=== PATIENT | female | born 1965 | race Caucasian/White ===

== ENCOUNTER 2016-10-18 05:37 | Emergency (ER) | payer BC ==
[2016-10-18 06:22] VITALS: BP 177/93
[2016-10-18] MEDS ORDERED: Albuterol/Ipratropium 3.0-0.5 MG/3 ML Neb Soln NEB ONE (06:39)
--- NOTE | 2016-10-18 06:45 | EDM.PDOC ---
<Carmina Jara - Last Filed: 10/18/16 06:40> ED HISTORY OF PRESENT ILLNESS - General Chief Complaint: Respiratory Problem Stated Complaint: COUGH/CAN'T HEAR Time Seen by Provider: 10/18/16 06:40 Source: Reports: Patient, Family History Limitations: Reports: No limitations - History of Present Illness INITIAL COMMENTS - FREE TEXT/NARRATIVE: pt arrived with a marked cough. She was seen at the clinic lst Wednesday with her uvula swollen and the cough. She was placed on amoxicillin. The throat is better but she is coughing markedly. Timing/Duration: Reports: Day(s): Severity: moderate Location, General: Reports: chest, other ( She is coughing markedly. ) Associated Symptoms: Reports: cough, shortness of breath - Related Data Allergies/ADRs: Allergies Allergy/AdvReac Type Severity Reaction Status Date / Time Sulfa (Sulfonamide Allergy Rash Verified 10/18/16 05:52 Antibiotics) Home Meds: Home Meds Albuterol [Proventil HFA] 2 puff INH Q4H PRN 09/26/15 [History] Cetirizine [ZyrTEC] 10 mg PO DAILY PRN 09/26/15 [History] Fluticasone Propionate [Flonase] 2 sprays NASBOTH DAILY PRN 09/26/15 [History] Ibuprofen [Advil] 200 mg PO Q4H PRN 09/26/15 [History] Losartan/Hydrochlorothiazide [Hyzaar 100-25] 1 tab PO DAILY 09/26/15 [History] Montelukast [Singulair] 10 mg PO DAILY 09/26/15 [History] Multivitamin [Multivitamins] 1 cap PO DAILY 09/26/15 [History] guaiFENesin [Mucinex] 600 mg PO ASDIRECTED PRN 09/26/15 [History] Amoxicillin/Clavulanate K [Take Home: Amox/Clavulanate 875-12, 2 Tab Pac] 1 tab PO BID 10/18/16 [History] Beclomethasone Dipropionate [Qvar] 1 puff INH BID PRN 10/18/16 [History] Nystatin [Nystatin] 5 ml PO QID 10/18/16 [History] Umeclidinium [place] [Incruse Ellipta] 1 puff INH DAILY 10/18/16 [History] Past Medical History HEENT History: Reports: Impaired vision Cardiovascular History: Reports: Hypertension Respiratory History: Reports: Asthma Gastrointestinal History: Reports: Chronic constipation Genitourinary History: Reports: None 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: Endocrine/Metabolic History: Reports: Obesity/BMI 30+ - Infectious Disease History Infectious Disease History: Reports: Chicken pox - Past Surgical History Female Surgical History: Reports: Tubal ligation Social & Family History - Tobacco Use Smoking Status *Q: Never Smoker - Caffeine Use Caffeine Use: Reports: Coffee - Recreational Drug Use Recreational Drug Use: No ED ROS GENERAL - Review of Systems Review Of Systems: See Below Constitutional: Reports: weakness, other (marked coughing) HEENT: Reports: Other ( Pt still feels like the uvula is swollen) Respiratory: Reports: Shortness of Breath, Cough Cardiovascular: Reports: No symptoms Endocrine: Reports: no symptoms GI/Abdominal: Reports: No symptoms : Reports: no symptoms Musculoskeletal: Reports: no symptoms Skin: Reports: no symptoms ED EXAM, GENERAL - Physical Exam Exam: See Below Free Text/Narrative:: Pt hs marked wheezing and a very harsh cough. Exam Limited By: No limitations General Appearance: alert, mild distress Ears: other (pt has fluid behind the rt drum. left drum has good lite reflex. ) Nose: normal inspection Throat/Mouth: Other (hr uvula is still slightly swollen) Head: atraumatic Neck: normal inspection Respiratory/Chest: no respiratory distress Cardiovascular: regular rate, rhythm GI/Abdominal: soft, non tender (Female) Exam: Deferred Rectal (Female) Exam: Deferred Back Exam: normal inspection Extremities: normal inspection Neurological: alert, oriented, normal cognition Course - Vital Signs Last Recorded V/S: Last Vital Signs Temp 96.4 F 10/18/16 06:09 Pulse 91 10/18/16 06:09 Resp 18 10/18/16 06:09 BP 177/93 H 10/18/16 06:09 Pulse Ox 92 L 10/18/16 06:09 - Orders/Labs/Meds Orders: Active Orders 24 hr Category Date Time Status RT Aerosol Therapy [RC] ASDIRECTED Care 10/18/16 06:40 Active Chest 2V [CR] Stat Exams 10/18/16 06:38 Taken Labs: Laboratory Tests 10/18/16 10/18/16 Range/Units 06:46 06:46 WBC 6.2 (4.5-11.0) K/uL RBC 4.45 (3.30-5.50) M/uL Hgb 13.9 (12.0-15.0) g/dL Hct 40.8 (36.0-48.0) % MCV 92 (80-98) fL MCH 31 (27-31) pg MCHC 34 (32-36) % Plt Count 230 (150-400) K/uL Neut % (Auto) 66 (36-66) % Lymph % (Auto) 15 L (24-44) % [place] % (Auto) 15 H (2-6) % Eos % (Auto) 3 (2-4) % Baso % (Auto) 1 (0-1) % Sodium 144 (140-148) mmol/L Potassium 3.5 L (3.6-5.2) mmol/L Chloride 105 (100-108) mmol/L Carbon Dioxide 30 (21-32) mmol/L Anion Gap 12.5 (5.0-14.0) mmol/L BUN 9 (7-18) mg/dL Creatinine 0.8 (0.6-1.0) mg/dL Est Cr Clr Drug Dosing 85.97 mL/min Estimated GFR (MDRD) > 60 (>60) Glucose 117 H (74-106) mg/dL Calcium 9.2 (8.5-10.1) mg/dL Meds: Medications Discontinued Medications Generic Name Dose Route Start Last Admin Trade Name Freq PRN Reason Stop Dose Admin Albuterol/Ipratropium 3 ml 10/18/16 06:39 10/18/16 06:45 Duoneb 3.0-0.5 Mg/3 Ml NEB 10/18/16 06:40 3 ml ONETIME ONE Administration Methylprednisolone Sodium Succinate 125 mg 10/18/16 07:14 10/18/16 07:21 Solu-Medrol IVPUSH 10/18/16 07:15 125 mg ONETIME ONE Administration Departure - Departure Disposition: Home, Self-Care 01 Clinical Impression: Exacerbation of asthma Instructions: Asthma, Adult, [id number] Referrals: Pravin Luciano MD [Primary Care Provider] - Forms: ED Department Discharge Care Plan Goals: Take 60 mg(6 pills) of prednisone with supper tonight, then 6 pills each morning with your first food for 4 more days. Recheck after prednisone if not improving sufficiently or return anytime if worsening or concerns. <Donta Rajput - Last Filed: 10/18/16 07:56> Course - Re-Assessments/Exams Free Text/Narrative Re-Assessment/Exam: 10/18/16 07:21 Chest xray negative. Patient had partial response to nebulizer. Will be given 125 mg of Solumedrol IV then 60 mg of prednisone daily for 5 days. She can return anytime if worsening Departure - Departure Time of Disposition: 07:38 Condition: good
[2016-10-18] MEDS ORDERED: methylPREDNISolone Sodium Succinate 125 MG/2 ML SDV IVPUSH ONE (07:14)
--- NOTE | 2016-10-19 10:26 | CR ---
Chest 2V HISTORY: cough wheezing COMPARISON: 09/26/2015. FINDINGS: Increased density left infrahilar region slight increased interstitial density in the mateo hilar regions when compared to prior study could represent a edema or inflammatory process. Cardiac size is stable no effusions. Impression: Increased density left infrahilar region as well as perihilar regions likely represent a mild inflam matory process.
== END 2016-10-18 07:38 | disposition home or self-care (01) ==
LOC: JP.ED 05:37
DX: J45.901 Unspecified asthma with (acute) exacerbation (principal); I10 Essential (primary) hypertension; E66.9 Obesity, unspecified; Z79.899 Other long term (current) drug therapy; Z88.2 Allergy status to sulfonamides; Z98.51 Tubal ligation status
CPT/HCPCS: 36415; 71020; 80048; 85025; 94640; 96374; 99284; J2930; J7620

== ENCOUNTER 2017-08-16 15:57 | Emergency (ER) | payer BC ==
[2017-08-16] MEDS ORDERED: Potassium Chloride 20 MEQ Tab.ER PO ONE (16:57)
[2017-08-16] MEDS ORDERED: Potassium Chloride 20 MEQ in Premix Bag 1 BAG IV ONE (17:01)
[2017-08-16] MEDS ORDERED: Sodium Chloride 0.9% 10 ML Syringe FLUSH PRN (17:04)
--- NOTE | 2017-08-16 17:07 | EDM.PDOC ---
ED HPI GENERAL MEDICAL PROBLEM - General Chief Complaint: Cardiovascular Problem Stated Complaint: HEART Time Seen by Provider: 08/16/17 16:25 Source of Information: Reports: Patient, Family History Limitations: Reports: No Limitations - History of Present Illness INITIAL COMMENTS - FREE TEXT/NARRATIVE: pT ARRIVED WITH A HISTORY OF HEART PALPITATIONS THAT STARTED SUDDENLY LAST NITE AND HAS PERSISTED THROUGH OUT THE DAY sHE HAS ALSO BEEN TIRED. sHE HAS NOT HAD CHEST PAIN. sHE IS ON HYDROCHLORTHIAZIDE AND NO K REPLACEMENT. Onset: Other ( STARTED YESTERDAY. ) Duration: Hour(s):, Other ( hER HEART IS NOT IRREGULAR IT WAS LAST NITE. ) Location: Reports: Chest Associated Symptoms: Reports: Other ( FATIQUE) - Related Data Allergies Allergy/AdvReac Type Severity Reaction Status Date / Time Sulfa (Sulfonamide Allergy Rash Verified 10/18/16 05:52 Antibiotics) Home Meds: Home Meds Albuterol [Proventil HFA] 2 puff INH Q4H PRN 09/26/15 [History] Cetirizine [ZyrTEC] 10 mg PO DAILY PRN 09/26/15 [History] Fluticasone Propionate [Flonase] 2 sprays NASBOTH DAILY PRN 09/26/15 [History] Ibuprofen [Advil] 200 mg PO Q4H PRN 09/26/15 [History] Losartan/Hydrochlorothiazide [Hyzaar 100-25] 1 tab PO DAILY 09/26/15 [History] Montelukast [Singulair] 10 mg PO DAILY 09/26/15 [History] Multivitamin [Multivitamins] 1 cap PO DAILY 09/26/15 [History] guaiFENesin [Mucinex] 600 mg PO ASDIRECTED PRN 09/26/15 [History] Past Medical History HEENT History: Reports: Impaired Vision Cardiovascular History: Reports: Hypertension Respiratory History: Reports: Asthma Gastrointestinal History: Reports: Chronic Constipation Genitourinary History: Reports: 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: Endocrine/Metabolic History: Reports: Obesity/BMI 30+ - Infectious Disease History Infectious Disease History: Reports: Chicken Pox - Past Surgical History Female Surgical History: Reports: Tubal Ligation Social & Family History - Tobacco Use Smoking Status *Q: Never Smoker - Caffeine Use Caffeine Use: Reports: Coffee - Recreational Drug Use Recreational Drug Use: No ED ROS GENERAL - Review of Systems Review Of Systems: See Below Constitutional: Reports: No Symptoms HEENT: Reports: No Symptoms Respiratory: Reports: No Symptoms Cardiovascular: Reports: Palpitations, Other (PT FELT LIKE HER HEART WAS VERY IRREGULAR. ) Endocrine: Reports: No Symptoms GI/Abdominal: Reports: No Symptoms : Reports: No Symptoms Musculoskeletal: Reports: No Symptoms Skin: Reports: No Symptoms ED EXAM, GENERAL - Physical Exam Exam: See Below Free Text/Narrative:: pT HAS BEEN VERY FATIQUED AND HER HEART HAS BEEN IRREGULAR SINCE LAST NITE. Exam Limited By: No Limitations General Appearance: Alert, Anxious, Mild Distress, Other (PUPILS ARE EQUAL AND REACTIVE. ) Ears: Normal TMs Nose: Normal Inspection Throat/Mouth: Normal Inspection Head: Atraumatic Neck: Normal Inspection Respiratory/Chest: No Respiratory Distress Cardiovascular: Regular Rate, Rhythm, Other ( THERE IS A VERY RARE ECTOPIC. ) GI/Abdominal: Soft, Non-Tender (Female) Exam: Deferred Rectal (Female) Exam: Deferred Back Exam: Normal Inspection Extremities: Normal Inspection Neurological: Alert, Oriented, Normal Cognition Course - Vital Signs Last Recorded V/S: Last Vital Signs Temp 37.5 C 08/16/17 16:20 Pulse 84 08/16/17 19:23 Resp 15 08/16/17 18:23 BP 122/71 08/16/17 19:23 Pulse Ox 98 08/16/17 17:41 - Orders/Labs/Meds Orders: Active Orders 24 hr Category Date Time Status EKG Documentation Completion [RC] ASDIRECTED Care 08/16/17 16:21 Active Saline Lock Insert [OM.PC] Routine Oth 08/16/17 17:04 Ordered EKG 12 Lead [EK] Routine Ther 08/16/17 16:21 Ordered Labs: Laboratory Tests 08/16/17 08/16/17 08/16/17 Range/Units 16:10 16:10 16:10 WBC 9.7 (4.5-11.0) K/uL RBC 4.67 (3.30-5.50) M/uL Hgb 14.6 (12.0-15.0) g/dL Hct 41.7 (36.0-48.0) % MCV 89 (80-98) fL MCH 31 (27-31) pg MCHC 35 (32-36) % Plt Count 249 (150-400) K/uL Neut % (Auto) 72 H (36-66) % Lymph % (Auto) 17 L (24-44) % [place] % (Auto) 10 H (2-6) % Eos % (Auto) 1 L (2-4) % Baso % (Auto) 0 (0-1) % Sodium 142 (140-148) mmol/L Potassium 2.7 L* (3.6-5.2) mmol/L Chloride 101 (100-108) mmol/L Carbon Dioxide 31 (21-32) mmol/L Anion Gap 12.7 (5.0-14.0) mmol/L BUN 10 (7-18) mg/dL Creatinine 0.8 (0.6-1.0) mg/dL Est Cr Clr Drug Dosing 85.97 mL/min Estimated GFR (MDRD) > 60 (>60) Glucose 113 H (74-106) mg/dL Calcium 9.8 (8.5-10.1) mg/dL Total Bilirubin 0.6 D (0.2-1.0) mg/dL AST 22 (15-37) U/L ALT 35 (12-78) U/L Alkaline Phosphatase 69 (46-116) U/L Total Protein 7.4 (6.4-8.2) g/dL Albumin 3.9 (3.4-5.0) g/dL Globulin 3.5 (2.3-3.5) g/dL Albumin/Globulin Ratio 1.1 L (1.2-2.2) TSH, Ultra Sensitive 1.735 (0.358-3.740) uIU/mL Urine Color Urine Appearance Urine pH (4.5-8.0) Ur Specific [place] (1.008-1.030) Urine Protein (NEGATIVE) mg/dL Urine Glucose (UA) (NEGATIVE) mg/dL Urine Ketones (NEGATIVE) mg/dL Urine Occult Blood (NEGATIVE) Urine Nitrite (NEGATIVE) Urine Bilirubin (NEGATIVE) Urine Urobilinogen (NORMAL) mg/dL Ur Leukocyte Esterase (NEGATIVE) Urine RBC (0-5) Urine WBC (0-5) Ur Epithelial Cells Amorphous Sediment Urine Bacteria Urine Mucus 08/16/17 Range/Units 16:57 WBC (4.5-11.0) K/uL RBC (3.30-5.50) M/uL Hgb (12.0-15.0) g/dL Hct (36.0-48.0) % MCV (80-98) fL MCH (27-31) pg MCHC (32-36) % Plt Count (150-400) K/uL Neut % (Auto) (36-66) % Lymph % (Auto) (24-44) % [place] % (Auto) (2-6) % Eos % (Auto) (2-4) % Baso % (Auto) (0-1) % Sodium (140-148) mmol/L Potassium (3.6-5.2) mmol/L Chloride (100-108) mmol/L Carbon Dioxide (21-32) mmol/L Anion Gap (5.0-14.0) mmol/L BUN (7-18) mg/dL Creatinine (0.6-1.0) mg/dL Est Cr Clr Drug Dosing mL/min Estimated GFR (MDRD) (>60) Glucose (74-106) mg/dL Calcium (8.5-10.1) mg/dL Total Bilirubin (0.2-1.0) mg/dL AST (15-37) U/L ALT (12-78) U/L Alkaline Phosphatase (46-116) U/L Total Protein (6.4-8.2) g/dL Albumin (3.4-5.0) g/dL Globulin (2.3-3.5) g/dL Albumin/Globulin Ratio (1.2-2.2) TSH, Ultra Sensitive (0.358-3.740) uIU/mL Urine Color Yellow Urine Appearance Clear Urine pH 7.0 (4.5-8.0) Ur Specific [place] 1.005 L (1.008-1.030) Urine Protein Negative (NEGATIVE) mg/dL Urine Glucose (UA) Normal (NEGATIVE) mg/dL Urine Ketones Negative (NEGATIVE) mg/dL Urine Occult Blood Moderate (NEGATIVE) Urine Nitrite Negative (NEGATIVE) Urine Bilirubin Negative (NEGATIVE) Urine Urobilinogen Normal (NORMAL) mg/dL Ur Leukocyte Esterase Negative (NEGATIVE) Urine RBC 0-5 (0-5) Urine WBC 0-5 (0-5) Ur Epithelial Cells Few Amorphous Sediment Not seen Urine Bacteria Few Urine Mucus Not seen Meds: Medications Discontinued Medications Generic Name Dose Route Start Last Admin Trade Name Freq PRN Reason Stop Dose Admin Potassium Chloride 20 meq/ 100 mls @ 50 mls/hr 08/16/17 17:01 08/16/17 18:01 Premix IV 08/16/17 19:00 Not Given ONETIME ONE Potassium Chloride 20 meq/ 112 mls @ 56 mls/hr 08/16/17 17:20 08/16/17 17:19 Lidocaine HCl 2 ml/ Sodium IV 08/16/17 19:19 56 mls/hr Chloride ONETIME ONE Administration Potassium Chloride 20 meq 08/16/17 16:57 08/16/17 17:02 Klor-Con M20 PO 08/16/17 16:58 20 meq ONETIME ONE Administration Sodium Chloride 10 ml 08/16/17 17:04 Saline Flush FLUSH ASDIRECTED PRN Keep Vein Open - Re-Assessments/Exams Free Text/Narrative Re-Assessment/Exam: 08/16/17 17:09 pT HAD A NORMAL TSH, HER K WAS 2.7. hER OTHER LABS LOOKED GOOD. Departure - Departure Time of Disposition: 19:25 Disposition: Home, Self-Care 01 Condition: Fair Clinical Impression: Hypokalemia, Palpitations Instructions: Hypokalemia, Palpitations, [id number] Referrals: Pravin Luciano MD [Primary Care Provider] - Forms: ED Department Discharge Care Plan Goals: KCL 10MEQ DAILY,HIGH K DIET, CONT OTHER MEDS, RECHECK K AT THE [facility] IN 1 WEEK. - My Orders Last 24 Hours: My Active Orders 08/16/17 16:21 EKG Documentation Completion [RC] ASDIRECTED EKG 12 Lead [EK] Routine 08/16/17 17:04 Saline Lock Insert [OM.PC] Routine - Assessment/Plan Last 24 Hours: My Active Orders 08/16/17 16:21 EKG Documentation Completion [RC] ASDIRECTED EKG 12 Lead [EK] Routine 08/16/17 17:04 Saline Lock Insert [OM.PC] Routine
[2017-08-16] MEDS ORDERED: Potassium Chloride 20 MEQ, Lidocaine 1% 2 ML in Sodium Chloride 0.9% 100 ML IV ONE (17:20)
[2017-08-16 19:32] VITALS: BP 122/71
== END 2017-08-16 19:42 | disposition home or self-care (01) ==
LOC: JP.ED 15:57
DX: E87.6 Hypokalemia (principal); I10 Essential (primary) hypertension; E78.00 Pure hypercholesterolemia, unspecified; Z79.899 Other long term (current) drug therapy; Z88.2 Allergy status to sulfonamides
CPT/HCPCS: 36415; 80053; 81001; 84443; 85025; 93005; 96360; 96361; 99285; A9270; J3480; J7030

== ENCOUNTER 2021-04-07 06:28 | Day surgery (SDC) | payer BC ==
[2021-04-07] MEDS ORDERED: fentaNYL 100 MCG/2 ML SDV ONE (07:26)
[2021-04-07] MEDS ORDERED: Midazolam 1 MG/ML 2 ML SDV ONE (07:26)
[2021-04-07] MEDS ORDERED: Propofol 200 MG/20 ML SDV ONE ×2 (07:26→08:12)
[2021-04-07] MEDS ORDERED: Sodium Chloride 0.9% 1,000 ML IV SCH (07:30)
[2021-04-07 08:57] VITALS: BP 110/63; PULSE 84
--- NOTE | 2021-04-07 11:11 | OR ---
DATE OF PROCEDURE: 04/07/2021 SURGEON: Turner He MD PROCEDURE: Colonoscopy. FINDINGS: 1. Sigmoid colon polyp, approximately 8 mm, completely removed using hot snare wire device. 2. Marginal colon prep. COMPLICATIONS: None. INTERACTIVE MEDIA MARKETING SPECIALIST: None. ANESTHESIA: MAC. PREOPERATIVE DIAGNOSIS: Screening colonoscopy. POSTOPERATIVE DIAGNOSIS: Screening colonoscopy. RISKS: Risks, benefits, alternatives, and limitations including, but not limited to infection, bleeding, perforation, false positives, false negatives were explained to the patient and she wished to proceed. PROCEDURE IN DETAIL: The patient was placed in left lateral decubitus position. Digital rectal exam was performed without abnormality. Scope was introduced and advanced atraumatically to the ileocecal valve. A photo was taken of this. Scope was brought back to the ascending, transverse, descending colon, and retroflexed. The aforementioned polyp was identified and completely removed. As described above, no abnormal bleeding was noted. No diverticulosis. No colitis. No abnormalities on retroflexion. The prep was poor with approximately 80% of the luminal surface could be seen. Greater than 8 minutes was spent removing the scope. The patient tolerated the procedure well. Turner He MD /[id number]
== END 2021-04-07 09:13 | disposition home or self-care (01) ==
LOC: JP.SDS 06:28
PROVIDERS: ATTEND Surgery
DX: Z12.11 Encounter for screening for malignant neoplasm of colon (principal); K63.5 Polyp of colon; Z88.2 Allergy status to sulfonamides; E11.9 Type 2 diabetes mellitus without complications; E66.9 Obesity, unspecified; I10 Essential (primary) hypertension; G47.33 Obstructive sleep apnea (adult) (pediatric); J45.909 Unspecified asthma, uncomplicated; Z68.28 Body mass index [BMI] 28.0-28.9, adult
CPT/HCPCS: 88305; J2250; J2704; J3010; J7030